=== PATIENT | female | born 1955 | race Caucasian/White ===

== ENCOUNTER 2016-09-09 06:54 | Emergency (ER) | payer OTHER ==
[~2016-09-09] VITALS: Ht 157.5 cm; Wt 53.5 kg
--- NOTE | 2016-09-09 07:23 | ED GI/GU/ABDOMINAL COMPLAINT ---
History of Present Illness General Chief Complaint: Abdominal Pain/Flank Pain Stated Complaint: ABD PAIN, "FEELS LIKE GAS" PER PT Source: patient, family Exam Limitations: no limitations Allergies Coded Allergies: No Known Allergies (09/09/16) Reconcile Medications Ciprofloxacin HCl (Cipro) 500 MG TABLET 1 TAB PO BID DIVERTICULITIS Hyoscyamine (Levsin) 0.125 MG TABLET 1 TAB PO Q6 Abdominal Cramps Metronidazole (Flagyl) 500 MG TABLET 1 TAB PO Q6 DIVERTICULITIS Paroxetine HCl (Paxil) 10 MG TABLET 1 TAB PO DAILY MENTAL HEALTH (Reported) Simethicone (Bicarsim) 80 MG TABLET 1 TAB PO Q6 Flatulence Please take as needed for Gas Relief Simvastatin (Simvastatin*) 20 MG TABLET 1 TAB PO QPM CHOLESTEROL (Reported) Triage Note: PER PT 24 HRS OF LOW ABD PAIN, GASSY IN NATURE NO NVD BMS WNL Triage Nurses Notes Reviewed? yes ? N Is pt currently ? No HPI: Ms Mejia is a 61-year-old female with past medical history of anxiety and hyperlipidemia who presented to the emergency department on the morning of 2016 complaining of worsening abdominal pain. Ms. Mejia states that her symptoms began during the afternoon of 09/08/2016. She states that her pain is rated at an 6 out of 10 in severity. Described as intermittent and spasmodic in nature and goes up to an 8 out of 10 in severity. Location is in the hypogastric and left and right illiac areas. Patient denies any fever, chills she does endorse nausea although states she's had no vomiting. She does endorse obstipation although states that this could be related to either to increased beans and seafood consumed a last 24 hours. She is currently visiting [place] from [place]. was present at bedside. ([facility]SEA WHITE,[facility]) Vital Signs & Intake/Output Vital Signs & Intake/Output Vital Signs Date Time Temp Pulse Resp B/P B/P Pulse O2 O2 Flow FiO2 Mean Ox Delivery Rate 09/09 1123 98.0 80 18 122/74 99 Room Air 09/09 0929 98.0 80 18 124/75 98 Room Air 09/09 0744 99 Room Air 09/09 0700 97.9 81 20 135/84 98 Past History Travel History Traveled to [place] past 21 day No Medical History Any Pertinent Medical History? see below for history Neurological: NONE EENT: NONE Cardiovascular: CHOL Respiratory: NONE Gastrointestinal: NONE Hepatic: NONE Renal: NONE Musculoskeletal: NONE Psychiatric: anxiety Endocrine: NONE Surgical History Surgical History: (34 years ago) Psychosocial History What is your primary language Persian Tobacco Use: Never used Family History Hx Contributory? Yes (MOISES TRAN MD) Review of Systems Review of Systems Constitutional: Denies: chills, diaphoresis, fever, malaise, weakness. EENTM: Denies: blurred vision, double vision, visual changes. Respiratory: Denies: hemoptysis, orthopnea, short of breath, sputum production. Cardiovascular: Denies: chest pain, edema, orthopena, palpitations. GI: Reports: abdominal pain, bloating, constipation, distention, nausea. Denies: diarrhea, vomiting. Genitourinary: Denies: discharge, dysuria, frequency, hematuria, hesitation. Musculoskeletal: Denies: back pain, gout, joint pain, joint swelling, muscle pain. Skin: Denies: change in skin color, change in hair/nails, dryness, erythema, jaundice. Neurological/Psychological: Denies: ataxia, cognitive dysfunction, confusion, depressed. (CHELSEA WHITE,MOISES) Physical Exam Physical Exam General Appearance: well developed/nourished, no apparent distress, alert, awake , anxious Respiratory: normal breath sounds, chest non-tender Cardiovascular: regular rate/rhythm Peripheral Pulses: 4+ dorsalis pedis (R), 4+ dorsalis pedis (L) Gastrointestinal: normal bowel sounds, soft, No distention. No Guarding. Rebound tenderness + LLQ. Whitley - Rectal: deferred Pelvic: normal external exam Back: normal inspection, normal range of motion, No CVA Tenderness. Extremities: normal range of motion Core Measures ACS in differential dx? No Severe Sepsis Present: No Septic Shock Present: No (CHELSEA WHITE,MOISES) Progress Differential Diagnosis: ischemic bowel, inflamm bowel dis, SBO, Adhesions Initial ED EKG: none (MOISES TRAN MD) Plan of Care: Orders Procedure Date/time Status Clear Liquid Diet 09/09 B Active Add-on Test (ER Only) 09/09 0907 Active GLYCOSYLATED HGB 09/09 0805 Complete URINALYSIS 09/09 0749 Complete LIPASE 09/09 0749 Complete COMPREHENSIVE METABOLIC PANEL 09/09 0749 Complete CBC WITHOUT DIFFERENTIAL 09/09 0749 Complete Laboratory Tests 09/09/16 0805: Anion Gap 10, Estimated GFR > 60, BUN/Creatinine Ratio 17.5, Glucose 113 H, Hemoglobin A1c 5.2, Calcium 9.7, Total Bilirubin 1.0, AST 25, ALT 47, Alkaline Phosphatase 71, Total Protein 6.2 L, Albumin 4.0, Globulin 2.2, Albumin/ Globulin Ratio 1.8, Lipase 26, CBC w Diff NO MAN DIFF REQ, RBC 4.11 L, MCV 88.7 , MCH 30.8, RDW 12.9, MPV 9.5, Gran % 84.0 H, Lymphocytes % 9.3 L, Monocytes % 6.1, Eosinophils % 0.1, Basophils % 0.5, Absolute Granulocytes 9.9 H, Absolute Lymphocytes 1.1 L, Absolute Monocytes 0.7 H, Absolute Eosinophils 0, Absolute Basophils 0.1, PUBS MCHC 34.7, Urinalysis LIGHT H, Urine Color STRAW, Urine Clarity CLEAR, Urine pH 6.5, Ur Specific [place] <= 1.005, Urine Protein NEG, Urine Ketones NEG, Urine Nitrite NEG, Urine Bilirubin NEG, Urine Urobilinogen 0.2, Ur Leukocyte Esterase TRACE H, Ur Microscopic SEDIMENT EXAMINED, Urine RBC RARE, Urine WBC 1-3 H, Ur Epithelial Cells FEW, Urine Bacteria RARE H, Urine Mucus RARE, Urine Hemoglobin TRACE-INTACT, Urine Glucose NEG Departure Departure Condition: Stable Referrals: UNKNOWN (PCP/Family) Departure Forms: Customer Survey General Discharge Information (CHELSEA WHITE,MOISES) Departure Disposition: HOME OR SELF CARE Clinical Impression Primary Impression: Diverticulitis large intestine Qualifiers: Diverticulitis bleeding: without bleeding Diverticulitis complication: without perforation or abscess Qualified Code: K57.32 - Diverticulitis of large intestine without perforation or abscess without bleeding Additional Instructions: Over the next 24-48 hours please endorse a LIQUID diet. You can then advance your diet as tolerated based on your symptoms. Cipro and Flagyl as prescribed for diverticulitis. For now we encourage plenty of liquids and foods that do not contain a lot of fiber. Return to the emergency department in 48 hours for reevaluation. When you get back home please inform your primary care physician of this visit to the emergency department. Please inform your primary care physician of the treatment administered to you. You may need to continue to see your GI doctor. If you experience worsening abdominal pain, fever, nausea, vomiting or generalized malaise please come back to the emergency department for further workup. Please also avoid prolonged immobility as this can slow down the bowel. Prescriptions: Current Visit Scripts Ciprofloxacin HCl (Cipro) 1 TAB PO BID #20 TAB Metronidazole (Flagyl) 1 TAB PO Q6 #40 TAB Hyoscyamine (Levsin) 1 TAB PO Q6 #30 TAB Simethicone (Bicarsim) 1 TAB PO Q6 #20 Please take as needed for Gas Relief Resident Co-Sign Statement Statement: ED Attending supervision documentation- [X] I saw and evaluated the patient. I have also reviewed all the pertinent lab results and diagnostic results. I agree with the findings and the plan of care as documented in the Resident's documentation. [] I have reviewed the ED Record and agree with the Resident's documentation. [] Additions or exceptions (if any) to the Resident's note and plan are summarized below: [] (PALLAVI WHITE,RUPAL Shannon) [] I have reviewed the ED Record and agree with the Resident's documentation. [] Additions or exceptions (if any) to the Resident's note and plan are summarized below: [] (RUPAL OLIVO MD)
[2016-09-09] MEDS ORDERED: PAXIL10 M1 PO (08:14)
[2016-09-09] MEDS ORDERED: SIMVASTATIN20 M2 PO (08:14)
[2016-09-09 08:18] LABS: ABSOLUTE BASOPHIL COUNT 0.1 /CUMM (0.0-0.2); ABSOLUTE EOSINOPHIL COUNT 0 /CUMM (0.0-0.7); ABSOLUTE GRANULOCYTE CT 9.9 /CUMM (1.4-6.5); ABSOLUTE LYMPH COUNT 1.1 /CUMM (1.2-3.4); ABSOLUTE MONOCYTE COUNT 0.7 /CUMM (0.10-0.60); BASOPHIL % 0.5 % (0.0-2.0); EOSINOPHIL % 0.1 % (0-5); HEMATOCRIT 36.5 % (37-47); MEAN CORPUSCULAR HGB 30.8 PG (27.0-31.0); MEAN CORPUSCULAR HGB CONC 34.7 G/DL (33.0-37.0); MEAN CORPUSCULAR VOLUME 88.7 FL (81.0-99.0); MEAN PLATELET VOLUME 9.5 FL (7.4-10.4); PLATELET COUNT 137 /CUMM (130-400); RBC DISTRIBUTION WIDTH 12.9 % (11.5-14.5); RED BLOOD CELL CT 4.11 /CUMM (4.20-5.40); WHITE BLOOD CELL COUNT 11.8 /CUMM (4.8-10.8)
--- NOTE | 2016-09-09 10:45 | CT SCAN REPORT ---
EXAMINATION: CT ABDOMEN AND PELVIS WITH CONTRAST CLINICAL INFORMATION: Abdominal pain, constipation and nausea. COMPARISON: None. TECHNIQUE: Multidetector volumetric imaging was performed of the abdomen and pelvis before and after the IV administration of 95 mL of Omnipaque 300 intravenous contrast. Sagittal and coronal reformatted images were obtained on the technologist's workstation. DLP: 239.34 mGy-cm FINDINGS: LUNG BASES: The visualized lung bases are unremarkable. LIVER, GALLBLADDER, AND BILIARY TREE: The liver is normal in size, shape, and attenuation. No focal hepatic lesion or biliary ductal dilatation is present. The gallbladder is unremarkable with no evidence of radiopaque gallstones, gallbladder wall thickening, or obvious pericholecystic inflammatory changes. PANCREAS: Unremarkable. SPLEEN: Unremarkable. Small subcentimeter splenic hypodensity is noted. A small splenule is present. ADRENAL GLANDS: Unremarkable. KIDNEYS AND URETERS: The kidneys are normal in size, shape, and attenuation. No hydronephrosis, hydroureter, or calculi seen. No perinephric stranding. There is a tiny subcentimeter angiomyolipoma in the upper pole of the left kidney. A worrisome mass is not present. BLADDER: Unremarkable. GASTROINTESTINAL TRACT: Extensive diverticular changes are present in the sigmoid colon with associated thickening and some streaky changes in the surrounding mesenteric fat. These findings are suggestive of uncomplicated diverticulitis without the presence of a fluid collection or free air. A tiny amount of free fluid is present in the cul-de-sac. There is no bowel obstruction. ABDOMINAL WALL: No significant hernia is appreciated. There is a tiny periumbilical hernia containing only fat. LYMPH NODES: Normal. VASCULAR: Unremarkable. PELVIC VISCERA: A normal anteverted uterus is seen. No abnormal adnexal masses seen. OSSEOUS STRUCTURES: Degenerative changes in the spine at L4-L5 with disc space narrowing and vacuum phenomena. No bony destructive lesions seen. IMPRESSION: Colonic diverticulosis without evidence of uncomplicated diverticulitis involving the sigmoid region. There is no free air or drainable collection. A small amount of free fluid is present in the cul-de-sac.
[2016-09-09] MEDS ORDERED: LEVSIN0.125 M1 PO (11:04)
[2016-09-09] MEDS ORDERED: BICARSIM80 M1 PO (11:04)
[2016-09-09] MEDS ORDERED: CIPRO500 M1 PO (11:15)
[2016-09-09] MEDS ORDERED: FLAGYL500 MG PO (11:15)
[2016-09-09 11:23] VITALS: BP 122/74
== END 2016-09-09 11:34 ==
LOC: ERH 06:54
PROVIDERS: Student in an Organized Health Care Education/Training Program
DX: K57.32 Diverticulitis of large intestine without perforation or abscess without bleeding (principal)
CPT/HCPCS: 74177; 81001